=== PATIENT | female | born 1965 | race Caucasian/White ===

== ENCOUNTER → 2016-11-22 | Outpatient (CLI) | payer OTHER | END | disposition home or self-care (01) | LOC: MAMMO 12:57 | PROVIDERS: ATTEND Obstetrics & Gynecology | DX: Z12.31 Encounter for screening mammogram for malignant neoplasm of breast (principal) ==

== ENCOUNTER → 2018-06-12 | Outpatient (CLI) | payer OTHER ==
--- NOTE | 2018-06-14 12:07 | MAM ---
EXAM DESCRIPTION: 3D Screening BILATERAL : Digital Mammography. CLINICAL HISTORY: 53 years Female SCREEN . No complaints or personal history of breast cancer. Mother with breast cancer. Childbirth. Hysterectomy 3 years ago. No HRT. Lifetime risk of developing breast cancer (Tyrer-Cuzick model)(%): 14.5. COMPARISON: 2-D digital screening bilateral mammography 11/22/2016. TECHNIQUE: Bilateral CC and MLO projection full-field images, digital tomosynthesis mammographic technique. Bilateral digital 2-D full-field MLO images. CAD not available for tomosynthesis or 2-D images. FINDINGS: The breast parenchymal density pattern is: Heterogeneously dense breast tissue, which may obscure small masses. No skin thickening or nipple retraction. Left axillary lymph nodes. Bilateral solitary microcalcifications and coarse calcifications. Lymph nodes also in the left axillary tail. One of the lymph nodes in the axillary tail appears slightly more enlarged since the prior study with increased surrounding breast density. Approximately 12 cm from the nipple 2:00 position. No new focal, stellate mass or density, focal asymmetry , and no suspicious microcalcifications right breast. IMPRESSION: BI-RADS CATEGORY: 0 - INCOMPLETE- Need additional imaging evaluation. FOLLOW-UP: Recall for additional imaging: Orthogonal tomosynthesis full field view region of interest left breast and targeted left breast ultrasound if indicated by diagnostic images.. Written communication concerning the IMPRESSION and Follow-up, will be mailed to the patient and referring health care provider. Electronically signed by: Jameson Bañuelos MD 06/14/2018 12:06 PM RADIO ADJUSTER
== END ==
LOC: MAMMO 16:30
PROVIDERS: ATTEND Family Medicine
DX: Z12.31 Encounter for screening mammogram for malignant neoplasm of breast (principal)

== ENCOUNTER → 2018-07-10 | Outpatient (CLI) | payer OTHER ==
--- NOTE | 2018-07-11 16:22 | US ---
EXAM DESCRIPTION: Breast,Left: Ultrasound CLINICAL HISTORY: 53 yearsFemaleABNL SCREEN. COMPARISON: Digital diagnostic tomosynthesis left breast on this visit. Bilateral screening digital breast tomosynthesis 06/12/2018. TECHNIQUE: Transcutaneous scanning of the left breast utilizing henry-scale and Doppler modes. Scanning performed by the apartment house manager ; observation by Dr. Bañuelos. FINDINGS: Scanning at the 2:00 position of the left breast 12 cm from the nipple. Mostly fatty echotexture with minimal fibroglandular echoes. Circumscribed hypoechoic mass density with wider than tall orientation and posterior acoustic enhancement. Minimal internal echogenicity and vascularity. Dimensions 0.8 x 0.3 cm. No dominant solid mass or distinct cyst. No enlarged calcifications or parenchymal edema. No overlying skin changes or abnormal vascularity. IMPRESSION: 1. Bi-Rads Category 2: Benign. 2. Please refer to left breast diagnostic digital tomosynthesis examination and report on this visit. The FINDINGS and the FOLLOW-UP plan were reviewed in person with the patient after the examination. Written communication explaining the IMPRESSION and FOLLOW-UP will be mailed to the patient and referring care provider. Electronically signed by: Jameson Bañuelos MD 07/11/2018 4:13 PM BILLET HEATER OPERATOR
--- NOTE | 2018-07-11 16:39 | MAM ---
EXAM DESCRIPTION: 3D Diagnostic, Left: Digital Mammography CLINICAL HISTORY: 53 yearsFemaleABNL SCREEN . Possible abnormal lymph node or breast tissue abutting the lymph node in the posterior left breast.. COMPARISON: Targeted left breast ultrasound included with this examination.. Bilateral screening digital breast tomosynthesis 06/12/2018.. TECHNIQUE: Left LM projection full-field images, digital mammographic tomosynthesis technique. CAD not utilized. FINDINGS: Left breast parenchymal density pattern is: Heterogeneously dense breast tissue, which may obscure small masses. No skin thickening or nipple retraction posterior intramammary lymph node or mass density is again noted. Multiple solitary microcalcifications and coarse calcifications. Ultrasound: Scanning at the 2:00 position of the left breast 12 cm from the nipple. Mostly fatty echotexture with minimal fibroglandular echoes. Circumscribed hypoechoic mass density with wider than tall orientation and posterior acoustic enhancement. Minimal internal echogenicity and vascularity. Dimensions 0.8 x 0.3 cm. No dominant solid mass or distinct cyst. No enlarged calcifications or parenchymal edema. No overlying skin changes or abnormal vascularity. IMPRESSION: Benign exam. BIRAD CATEGORY: 2 BENIGN FINDINGS. RECOMMENDATIONS: FOLLOW UP: Return to routine digital bilateral mammographic screening, one year interval from June 2018. The FINDINGS and the FOLLOW-UP plan were reviewed in person with the patient after the examination. Written communication explaining the IMPRESSION and FOLLOW-UP will be mailed to the patient and referring care provider. According to the [employer], yearly mammograms are recommended starting at age 40 and continuing as long as a woman is in good health. Any breast change noted on a breast self-exam should be reported promptly to the patient's healthcare provider. Breast MRI is recommended for women with an approximately 20-25% or greater lifetime risk of breast cancer, including women with a strong family history of breast or ovarian cancer and women who have been treated for Hodgkin's disease. A negative mammographic report should not delay tissue diagnosis in patients with significant clinical history or physical findings. Extremely dense breast tissue limits the sensitivity of digital mammography. Electronically signed by: Jameson Bañuelos MD 07/11/2018 4:[address]
== END ==
LOC: MAMMO 16:10
PROVIDERS: ATTEND Obstetrics & Gynecology
DX: R92.8 Other abnormal and inconclusive findings on diagnostic imaging of breast (principal)
CPT/HCPCS: 76641; 77065; G0279

== ENCOUNTER 2019-02-05 17:22 | Emergency (ER) | payer OTHER ==
[2019-02-05] MEDS ORDERED: ASPIRIN (CHEWABLE) 81 MG TAB PO ONE (17:30)
[2019-02-05] MEDS ORDERED: SODIUM CHLORIDE 0.9% (FLUSH) 10 ML SYG IV PRN (17:32)
[2019-02-05] MEDS ORDERED: ONDANSETRON INJ 4 MG/2 ML VIAL IV ONE (17:32)
[2019-02-05] MEDS ORDERED: NITROGLYCERIN 0.4 MG 25 EA TAB SL ONE (17:32)
[2019-02-05 17:34] VITALS: TEMP 97.6
--- NOTE | 2019-02-05 18:03 | ED.PDOC ---
History of Present Illness - General Chief Complaint: Chest Pain/TX Time Seen by Provider: 02/05/19 17:29 Source: patient, RN/MD Exam Limitations: no limitations - History of Present Illness Initial Comments: Patient is a 53 yo F presenting with a fluttering in her chest and tightness that has been ongoing and intermittent over the past 24 hours. She states that this is becoming more frequent. she denies feeling the sensation in the past. She states the pain is nonexertionalin the tightness does not radiate from the substernal region. Patient does note that she became nauseated and short of breath with these symptoms. She denies taking any aspirin or nitroglycerin today. She denies any diaphoresis with the symptoms. She does note a family history coronary disease in her mother. Patient denies smoking, history of hypertension, history of hyperlipidemia, or diabetes. She denies any recent travel, recent surgeries, prolonged immobilization, leg pain, leg swelling, hemoptysis, history of cancer, or hormone replacement. Timing/Duration: 7-24 hours Severity: moderate Location: substernal Activities at Onset: none Prior Chest Pain/Cardiac Workup: no prior chest pain, no prior cardiac workup Improving Factors: nothing Worsening Factors: nothing Nitro Today/Relief: no nitro taken today Aspirin Treatment Today: no aspirin today Associated Symptoms: chest pain, nausea/vomiting, shortness of breath Allergies/Adverse Reactions: Allergies Prochlorperazine [From Compazine] Allergy (Verified 02/05/19 17:34) Other Causes extrapyradimal effects Home Medications: Ambulatory Orders Imipramine HCl 50 mg PO BEDTIME 02/05/19 Temazepam 30 mg PO BEDTIME 02/05/19 Review of Systems - Review of Systems Constitutional: States: no symptoms reported EENTM: States: no symptoms reported Respiratory: States: short of breath Cardiology: States: chest pain, palpitations Gastrointestinal/Abdominal: States: nausea Genitourinary: States: no symptoms reported Musculoskeletal: States: no symptoms reported Past Medical History (General) - Patient Medical History Hx Stroke: No Hx Congestive Heart Failure: No Hx Diabetes: No Hx Gastroesophageal Reflux: Yes Surgical History: Hysterectomy - Vaccination History Hx Influenza Vaccination: No Hx Pneumococcal Vaccination: No - Social History Hx Tobacco Use: No Hx Alcohol Use: No Family Medical History - Family History Mother Living Status: Still Living Hx Cardiac Disease: Yes Hx Family Diabetes: Yes Hx Family Cancer: Yes - Breast Physical Exam - Physical Exam General Appearance: Anxious, Well Developed, Well Hydrated, Well Nourished Neck: full range of motion, supple Respiratory: chest non-tender, lungs clear, normal breath sounds, no respiratory distress, no accessory muscle use Cardiovascular/Chest: normal peripheral pulses, regular rate, rhythm, no edema, no gallop, no JVD, no murmur Peripheral Pulses: radial,right: 2+, radial,left: 2+, dorsalis pedis,right: 2+, dorsalis pedis,left: 2+, posterior tibialis,right: 2+, posterior tibialis,left: 2+ Gastrointestinal/Abdominal: normal bowel sounds, non tender, soft, no organomegaly Extremity: normal range of motion, non-tender, normal inspection, no pedal edema Neurologic: alert, oriented x 3 Skin Exam: normal color, warm/dry Progress - Progress Progress: DDx: ACS, PE, GERD, Pneumonia, pneumothorax, aortic dissection 02/05/19 18:03 Patient evaluated and EKG findings discussed with the patient. Plan will be for cardiac workup. Chest x-ray not significant for focal pneumonia or pneumothorax. Patient was given aspirin 324 mg. 02/05/19 18:48 patient discussed with cardiology at [facility]. They agreed to accept the patient. Given concerns for an STEMI, the patient was started on heparin bolus followed by heparin drip. She did develop a subsequent headache after nitroglycerin and was given Tylenol. Chest tightness did improve with nitroglycerin therapy.Transfer MOT sign. Patient pending transfer at this time. She denies any other complaints or chest pain. Patient is a 53-year-old female presenting with chest tightness, nausea, and shortness of breath or the past 24-48 hours. Her EKG was significant for T-wave inversions in the anterior leads suggestive of underlying ischemia. She has no risk factors for underlying pulmonary embolus and her symptoms were unlikely secondary to heart strain from pulmonary embolus. Chest x-ray was not suggestive of underlying pneumonia or pneumothorax. She did not have anemia causing demand ischemia. There was no signs of renal disease causing elevation of cardiac enzymes. Troponin was found to be within normal limits however CK-MB is elevated. This increases concern for underlying NSTEMI. Patient will be started on heparin drip followed by heparin bolus. She was discussed with cardiology at [facility], who agreed for plan for transfer. Patient was comfortable with plan for transfer to [place]. - Results/Orders Results/Orders: CXR: NAD 02/05/19 17:32 Telemetry .ONCE Sodium Chloride 0.9% (Flush) [Saline Flush Syringe] 10 ml IV PRN PRN Pulse Ox Stat 02/05/19 17:45 EKG STAT 02/05/19 18:41 BOLUS Sodium Chloride 0.9% 1000ML [Ns 1000 ml] 1,000 ml IVS ONCE 02/05/19 18:45 HEPARIN PREMIX INFUSION @ 12 UNITS/KG/HR Heparin Premix [Heparin/D5w 25,000U/500ML] 25,000 units Premix Bag 1 bag IVS PRN Laboratory Results - last 24 hr 02/05/19 17:31 WBC 4.8 RBC 4.66 Hgb 14.7 Hct 42.9 MCV 92.0 MCH 31.5 H MCHC 34.2 RDW 13.5 Plt Count 172 MPV 8.8 Absolute Neuts (auto) 2.90 Absolute Lymphs (auto) 1.50 Absolute Monos (auto) 0.40 Absolute Eos (auto) 0.00 Absolute Basos (auto) 0.00 Neutrophils % 60.5 Lymphocytes % 30.3 Monocytes % 7.6 Eosinophils % 1.0 Basophils % 0.6 PT 10.4 INR 1.04 PTT (SP) 25.9 Sodium 139 Potassium 3.8 Chloride 99 L Carbon Dioxide 27 Anion Gap 16.8 BUN 16 Creatinine 0.63 BUN/Creatinine Ratio 25.4 H Random Glucose 109 H Serum Osmolality 279.3 Calcium 10.0 Magnesium 2.1 Total Bilirubin 0.5 Direct Bilirubin < 0.1 Indirect Bilirubin 0.4 AST 27 ALT 21 Alkaline Phosphatase 88 Creatine Kinase 77 CK-MB (CK-2) 7.1 H* CK-MB (CK-2) % Not Reportable Troponin I < 0.02 B-Natriuretic Peptide 20.7 Serum Total Protein 7.9 Albumin 5.0 - EKG/XRAY/CT EKG: Sinus Comments: T-wave inversion in the anterior leads. No previous EKG to compare to. Xray Comments: No acute disease Departure - Departure Clinical Impression: NSTEMI (non-ST elevated myocardial infarction) Disposition: Transfer to Hospital Condition: Good Departure Forms: ED Discharge - Pt. Copy, Patient Portal Self Enrollment Instructions: DI for Chest Pain Referrals: Néstor Brown MD [Primary Care Provider] - 1-2 Weeks Home Medications: Ambulatory Orders Imipramine HCl 50 mg PO BEDTIME 02/05/19 Temazepam 30 mg PO BEDTIME 02/05/19
--- NOTE | 2019-02-05 18:09 | RAD ---
EXAM: XR Chest, 2 Views CLINICAL HISTORY: cp TECHNIQUE: Frontal and lateral views of the chest. COMPARISON: No relevant prior studies available. FINDINGS: Limitations: None. Lungs: Unremarkable. No consolidation. Pleural space: Unremarkable. No pneumothorax. Heart: Unremarkable. No cardiomegaly. Mediastinum: Unremarkable. Bones/joints: Unremarkable. IMPRESSION: No acute findings. Electronically signed by: Haley Wade MD 02/05/2019 6:07 PM CDT
[2019-02-05] MEDS ORDERED: ACETAMINOPHEN 325 MG TAB PO ONE (18:33)
[2019-02-05] MEDS ORDERED: SODIUM CHLORIDE 0.9% 1000ML 1,000 ML IVS ONE (18:41)
[2019-02-05] MEDS ORDERED: HEPARIN SODIUM (PORCINE) 5,000 U/ML VIAL IV ONE (18:43)
[2019-02-05] MEDS ORDERED: HEPARIN PREMIX 25,000 UNITS in PREMIX BAG 1 BAG IVS SCH (18:45)
[2019-02-05] MEDS ORDERED: HEPARIN PREMIX 500 ML ONE (18:45)
[2019-02-05 18:56] VITALS: BP 138/72; O2SAT 97
== END 2019-02-05 19:29 | disposition short-term general hospital (02) ==
LOC: ER 17:22
DX: I21.4 Non-ST elevation (NSTEMI) myocardial infarction (principal); R51 Headache; R11.2 Nausea with vomiting, unspecified; K21.9 Gastro-esophageal reflux disease without esophagitis; Z79.899 Other long term (current) drug therapy; Z88.8 Allergy status to other drugs, medicaments and biological substances; Z82.49 Family history of ischemic heart disease and other diseases of the circulatory system
CPT/HCPCS: 36415; 71046; 80048; 80076; 82550; 82553; 83880; 84484; 85025; 85610; 85730; 93005; 94760; J1644; J2405; J7030

== ENCOUNTER → 2019-10-01 | Outpatient (CLI) | payer OTHER ==
--- NOTE | 2019-10-02 16:40 | MAM ---
EXAM DESCRIPTION: 3D Screening BILATERAL : Digital Mammography. CLINICAL HISTORY: 54 years Female SCREENING . No complaints or personal history of breast cancer. Mother with breast cancer age 73. Menarche age 13. Childbirth age 25. Hysterectomy age 50. No HRT. Lifetime risk of developing breast cancer (Tyrer-Cuzick model)(%): 14.2. COMPARISON: Bilateral screening digital breast tomosynthesis June 2018 and 2-D digital screening bilateral mammography November 2016. Left breast diagnostic digital tomosynthesis July 2018.. TECHNIQUE: Bilateral CC and MLO projection full-field images, digital tomosynthesis mammographic technique. Bilateral digital 2-D full-field MLO images. CAD available for 2-D images. FINDINGS: The breast parenchymal density pattern is: Heterogeneously dense breast tissue, which may obscure small masses. No skin thickening or nipple retraction. Bilateral solitary microcalcifications. Bilateral vascular calcifications. Left breast is slightly larger. No new focal, stellate mass or density, focal asymmetry , and no suspicious microcalcifications bilaterally. Stable mammograms compared to prior study. IMPRESSION: Benign exam. BIRAD CATEGORY: 2 BENIGN FINDINGS. RECOMMENDATIONS: FOLLOW UP: Routine digital bilateral mammographic screening, one year interval from September 2019. Written communication explaining the IMPRESSION and follow-up, will be mailed to the patient and referring health care provider. According to the [employer], yearly mammograms are recommended starting at age 40 and continuing as long as a woman is in good health. Any breast change noted on a breast self-exam should be reported promptly to the patient's healthcare provider. Breast MRI is recommended for women with an approximately 20-25% or greater lifetime risk of breast cancer, including women with a strong family history of breast or ovarian cancer and women who have been treated for Hodgkin's disease. A negative mammographic report should not delay tissue diagnosis in patients with significant clinical history or physical findings. Extremely dense breast tissue limits the sensitivity of digital mammography. Electronically signed by: Jameson Bañuelos MD 10/02/2019 4:39 PM CDT
== END ==
LOC: MAMMO 15:02
PROVIDERS: ATTEND Obstetrics & Gynecology
DX: Z12.31 Encounter for screening mammogram for malignant neoplasm of breast (principal)